=== PATIENT | female | born 1965 | race Caucasian/White ===

== ENCOUNTER 2020-05-14 20:46 | Emergency (ER) | payer BC ==
[~2020-05-14] VITALS: Ht 175.3 cm; Wt 83.3 kg
[~2020-05-14 20:46] MED LIST: ASCO500C18 PO; CYAN500T46 PO; CYCL-1 PO; LOPE1TAB46 PO; MULT-38 PO; OXYC-658 PO; PANT40TA54 PO; TRAM50TA2 PO
--- NOTE | 2020-05-14 21:01 | NUR ---
Patient states she is in 10/10 pain. Prolapse visualized, Dr. Man notified.
[2020-05-14 21:09] VITALS: BP 165/102
[2020-05-14] MEDS ORDERED: LIDOcaine Viscous 15ml cup MM ONE (21:25)
[2020-05-14] MEDS ORDERED: acetaminophen 325mg tablet PO ONE (21:30)
[2020-05-14] MEDS ORDERED: ondansetron 4mg rapidly disintigrating tab PO ONE (21:30)
[2020-05-14] MEDS ORDERED: ketorolac trometh inj. 60 MG/2 ML VIAL IM ONE (21:30)
[2020-05-14] MEDS ORDERED: HYDROcodone/acetaminophen 5mg/325mg tablet PO ONE (21:30)
== END 2020-05-14 21:53 | disposition home or self-care (01) ==
LOC: ER 20:46
DX: N81.4 Uterovaginal prolapse, unspecified (principal); R10.2 Pelvic and perineal pain; R10.30 Lower abdominal pain, unspecified; E78.00 Pure hypercholesterolemia, unspecified; I10 Essential (primary) hypertension; Z85.43 Personal history of malignant neoplasm of ovary; Z90.49 Acquired absence of other specified parts of digestive tract; Z90.710 Acquired absence of both cervix and uterus; Z72.89 Other problems related to lifestyle; Z88.1 Allergy status to other antibiotic agents; Z79.899 Other long term (current) drug therapy
CPT/HCPCS: 96372; 99284; J1885

== ENCOUNTER 2021-03-31 20:18 | Emergency (ER) | payer BC ==
[~2021-03-31] VITALS: Ht 175.3 cm; Wt 80.0 kg
[2021-03-31] MEDS ORDERED: morphine 4 MG/ML inj SYRINge IV ONE (21:15)
--- NOTE | 2021-03-31 22:36 | NUR ---
Morrow and IV d/c'd. Pt given and understands d/c instructions.
[2021-03-31 22:37] VITALS: BP 133/82
[2021-03-31 22:40] LABS: CLARITY,URINE CLEAR (Clear); COLOR,URINE YELLOW (Yellow); GLUCOSE, URINE NEGATIVE (Neg); KETONES,URINE NEGATIVE (Neg); LEUKOCYTE ESTERASE ,URINE NEGATIVE (Neg); NITRITES, URINE NEGATIVE (Neg); OCCULT BLOOD,URINE NEGATIVE (Neg); PROTEIN,URINE NEGATIVE (Neg); UA COLLECTION TYPE STRAIGHT CATH; UROBILINOGEN,URINE 0.2 E.U/dL (0.2-1.0)
== END 2021-03-31 22:39 | disposition home or self-care (01) ==
LOC: ER 20:19
DX: N81.4 Uterovaginal prolapse, unspecified (principal); F10.129 Alcohol abuse with intoxication, unspecified; Y90.9 Presence of alcohol in blood, level not specified; E78.00 Pure hypercholesterolemia, unspecified; I10 Essential (primary) hypertension; Z88.1 Allergy status to other antibiotic agents; Z79.899 Other long term (current) drug therapy
CPT/HCPCS: 81003; 96374; 99284; J2270

== ENCOUNTER 2024-05-27 09:07 | Emergency (ER) | payer BC ==
[~2024-05-27] VITALS: Ht 175.3 cm; Wt 84.1 kg
[2024-05-27] MEDS: HYDROcodone/acetaminophen 5mg/325mg tablet PO ONE (10:24)
[2024-05-27 11:14] VITALS: TEMP 98
[2024-05-27] MEDS: HYDROmorphone 1 mg/ml syringe IM ONE (11:54)
[2024-05-27] MEDS ORDERED: HYDR-3965 PO (12:50)
[2024-05-27 13:06] VITALS: BP 186/98; PULSE 74; RESP 16; O2SAT 94
== END 2024-05-27 13:07 | disposition home or self-care (01) ==
LOC: ER 09:07
DX: S00.83XA Contusion of other part of head, initial encounter (principal); S70.02XA Contusion of left hip, initial encounter; S09.8XXA Other specified injuries of head, initial encounter; F10.90 Alcohol use, unspecified, uncomplicated; E78.00 Pure hypercholesterolemia, unspecified; I10 Essential (primary) hypertension; Z85.43 Personal history of malignant neoplasm of ovary; Z90.710 Acquired absence of both cervix and uterus; Z90.49 Acquired absence of other specified parts of digestive tract; Z88.1 Allergy status to other antibiotic agents; Z79.899 Other long term (current) drug therapy; W18.39XA Other fall on same level, initial encounter; Y93.89 Activity, other specified; Y92.89 Other specified places as the place of occurrence of the external cause; Y99.8 Other external cause status
CPT/HCPCS: 70450; 70486; 72125; 73502; 73552; 96372; 99285; J1171